=== PATIENT | female | born 1940 | race Caucasian/White ===

== ENCOUNTER → 2019-07-21 | Outpatient (CLI) | payer MEDICARE ==
--- NOTE | 2019-07-21 14:34 | Diagnostic Imaging Report ---
Ultrasound female pelvis Clinical diagnosis: Bloating Last menstrual period: Postmenopausal Comparison: None Technique: Multiple transaxial and longitudinal images were obtained through the pelvis. Low MHz transducer(s) was(were) utilized transabdominally and endovaginally. Color Doppler and spectral waveform analysis images were submitted to evaluate for blood flow. Multiple images were submitted for interpretation. Report: The patient is status post hysterectomy in 1997. The patient is also reportedly status post left oophorectomy. Uterus: Surgically absent Right Ovary: 1.2 x 1.1 x 1 cm. Left Ovary: Not visualized because of oophorectomy. Free Fluid: Absent Impression: Unremarkable pelvic ultrasound exam in a late postmenopausal patient status post hysterectomy and left nephrectomy. Signed by: Vickey Evans MD on 07/21/2019 2:31 PM
== END ==
LOC: US 13:04
PROVIDERS: ATTEND Obstetrics & Gynecology
DX: R14.0 Abdominal distension (gaseous) (principal)
CPT/HCPCS: 76830; 76856